=== PATIENT | male | born 1980 | race Caucasian/White ===

== ENCOUNTER 2025-05-03 22:16 | Emergency (ER) | payer MEDICAID, SELFPAY ==
--- NOTE | 2025-05-03 23:24 | PC.NURSE ---
CALLED FOR PT FROM LOBBY/OUTSIDE, NO ANSWERX1@ [phone]
--- NOTE | 2025-05-03 23:48 | PC.NURSE ---
CALLED FOR PT FROM LOBBY/OUTSIDE, NO ANSWERX2@[phone]
--- NOTE | 2025-05-03 23:53 | PD.EDADDENDU ---
Emergency Room Addendum Addendum Narrative: When I looked for the patient to start my evaluation, I was told the patient eloped. Cole Disla MD
== END 2025-05-04 00:39 | disposition left against medical advice (07) ==
PROVIDERS: Emergency Provider Emergency Medicine
DX: Z53.21 Procedure and treatment not carried out due to patient leaving prior to being seen by health care provider (principal)
CPT/HCPCS: 99283

== ENCOUNTER 2025-05-06 03:14 | Emergency (ER) | payer MEDICAID, SELFPAY ==
[2025-05-06 03:15] VITALS: BMI 37.5
[2025-05-06 03:25] VITALS: BP 161/101; PULSE 95; RESP 18; TEMP 36.8; O2SAT 96
--- NOTE | 2025-05-06 03:39 | XR_ITS ---
Examination: CT abdomen and pelvis without contrast. Coronal 3-D reconstructions. Sagittal 2-D reconstructions. Date and time of exam:May 06, 2025, 0400 hours INDICATIONS: Left upper abdominal pain and left flank pain beginning one week ago CTDI: vol (mGy): 11.4. DLP: (mGycm): 748. Technique: Axial images of the abdomen have been obtained, 3 mm slice thickness Intravenous contrast material has not been administered. Low dose protocols were performed. One or more of the following dose reduction techniques were used; automated exposure control, adjustment of the mA and/or KV according to patient size, use of iterative reconstruction technique. Findings: No focal liver or splenic lesions Contracted gallbladder No pancreatic or adrenal mass Aorta normal size 19 mm cystic lesion upper pole left kidney No renal or ureteral calculi, no hydronephrosis 20 mm fat-containing umbilical hernia Normal appendix No bowel obstruction or diverticulitis Normal seminal vesicles No prostatomegaly Urinary bladder intact IMPRESSION: Recommend renal sonography to further assess 19 mm cystic lesion upper pole left kidney Normal appendix No bowel obstruction diverticulitis or free air
[2025-05-06] MEDS: ONDANSETRON ODT 4 MG TABRAP PO (03:52)
[2025-05-06] MEDS: FAMOTIDINE 20 MG TABLET 40 MG PO (03:52)
[2025-05-06] MEDS: MG HYD/AL HYD/SIME (Maalox Reg) SUSP 30 ML UDC PO (04:13)
[2025-05-06 05:00] LABS: Basophils # (Auto) 0.1 Thou/mm3 (0.0-0.2); Basophils % (Auto) 1 % (0-2.5); Eosinophils # (Auto) 0.2 Thou/mm3 (0.0-0.5); Eosinophils % (Auto) 2 % (0-10); Hematocrit 44.2 % (41.0-53.0); Hemoglobin 15.5 g/dL (13.5-16.0); Immature Granulocytes Auto 0.02 Thou/mm3 (0.00-0.00); Lymphocytes # (Auto) 2.8 Thou/mm3 (1.0-4.8); Lymphocytes % (Auto) 27 % (10-50); Mean Corpuscular HGB Conc 35.1 g/dl (31.0-37.0); Mean Corpuscular Hemoglobin 30.1 pg (25.0-35.0); Mean Corpuscular Volume 86 fL (80-100); Monocytes # (Auto) 1.0 Thou/mm3 (0.0-0.8); Monocytes % (Auto) 9 % (0-12); Neutrophils # (Auto) 6.5 Thou/mm3 (1.8-7.7); Neutrophils % (Auto) 62 % (37-80); Nucleated Red Blood Cell # 0.00 Thou/mm3 (0.00-0.00); Nucleated Red Blood Cell % 0 /100 WBC (0); Platelet Count 283 Thou/mm3 (140-440); RDW Standard Deviation 40.5 fL (35.1-43.9); Red Blood Count 5.15 Miln/mm3 (4.50-5.90); White Blood Count 10.5 Thou/mm3 (3.8-10.6)
--- NOTE | 2025-05-06 05:11 | PRELIM_ITS ---
CT scan of the abdomen and pelvis without intravenous contrast (axial sections with sagittal and coronal reformats) May 06, 2025 0400 hours Clinical History: LUQ/Flank pain. Comparison: No prior study is available for comparison. Findings: The lung bases are clear. The liver, gallbladder, pancreas, spleen and adrenals are unremarkable on this noncontrast study. Cystic lesion of the left kidney measures 1.9 cm. No hydronephrosis. No evidence of kidney or ureteral stones. No evidence of bowel obstruction. The appendix is within normal limits. There is no mesenteric or retroperitoneal adenopathy. The urinary bladder is unremarkable. There is no free fluid or free air. Degenerative changes of the imaged portions of the spine. Chronic multilevel disc disease. No acute fractures. Vascular calcifications. Mildly prominent descending and sigmoid colon. Impression: Left renal cystic lesion, consider further evaluation for characterization. No kidney or ureteral stones. Possible mild colitis of the descending and sigmoid colon. Report Electronically Signed By: Manuel Capone 05/06/2025 5:11:23 AM [EST]
[2025-05-06 05:15] LABS: Alanine Aminotransferase 32 U/L (10-49); Albumin, Serum 4.5 gm/dL (3.5-5.0); Albumin/Globulin Ratio 1.7 (1.2-2.2); Alcohol, Blood Medical < 3.0 mg/dL (0-10.0); Alkaline Phosphatase 104 U/L (46-116); Anion Gap 4 (7-16); Aspartate Amino Transferase 28 U/L (0-34); BUN/Creatinine Ratio 10 Ratio (12-20); Bilirubin,Total 0.5 mg/dL (0.3-1.2); Blood Urea Nitrogen 16 mg/dL (9-23); Calcium 9.5 mg/dL (8.3-10.6); Calcium (Corrected) 9.5 mg/dL (8.5-10.1); Carbon Dioxide 29.7 mMol/L (20.0-31.0); Chloride 107 mMol/L (98-107); Creatinine (Component) 1.6 mg/dL (0.6-1.3); Estimated Creatinine Clearance 84.8 mL/min (>60); Globulin 2.7 gm/dL (2.3-3.5); Glucose 101 mg/dL (74-106); Lipase 39 U/L (12-53); Osmolality,Calculated 282 (275-295); Potassium 4.4 mMol/L (3.4-5.1); Sodium 141 mMol/L (136-145); Total Protein 7.2 gm/dL (5.7-8.2); eGFR 55 See Note
--- NOTE | 2025-05-06 05:54 | PD.EDRME ---
Rapid Medical Screening Exam E Arrival date/time: 05/06/25 03:14 44M with no significant PMH presents to ED with 1.5 weeks of LUQ/flank pain and N/V, possibly bloody. Patient smokes marijuana but denies alcohol abuse. Chief Complaint: Abdominal Pain Time Seen by Provider: 05/06/25 03:37 Vital signs: Vital Signs Temperature 98.2 F 05/06/25 03:25 Pulse Rate 95 05/06/25 03:25 Respiratory Rate 18 05/06/25 03:25 Blood Pressure 161/101 H 05/06/25 03:25 Pulse Oximetry (%) 96 05/06/25 03:25 Oxygen Delivery Method Room Air 05/06/25 03:25
[2025-05-06 06:03] LABS: Collection Type, Urine Clean Catch
[2025-05-06 06:37] LABS: Amphetamine/Methamp Scrn,U Positive (Negative); Barbiturate Screen,Urine Negative (Negative); Benzodiazepines Screen,Urine Negative (Negative); Benzoylecgonine Screen, Ur Negative (Negative); Fentanyl Screen,Urine Negative (Negative); Opiate Screen,Urine Negative (Negative); THC Screen,Urine Positive (Negative)
[2025-05-06 06:39] LABS: Bacteria,Urine Rare; Bilirubin,Urine Negative (Negative); Blood,Urine Negative (Negative); Clarity,Urine Clear (Clear/Hazy); Color,Urine Yellow (Lt Yel-Yel); Culture Indicated,Urine Not Indicated; Glucose, Urine Negative (Negative); Ketones,Urine Negative (Negative); Leukocyte Esterase,Urine Negative (Negative); Nitrite,Urine Negative (Negative); PH,Urine 6.0 (5.0-7.0); Protein,Urine Trace (Neg - Trace); RBC,Urine 1 /hpf (0-3); Specific Gravity,Urine 1.036 (1.001-1.035); Squamous Epithelial Cell,Urine < 1 /hpf (0-5); Urobilinogen,Urine 2.0 mg/dL (0.0-1.0); WBC,Urine 4 /hpf (0-5)
[2025-05-06 06:40] LABS: Sperm,Urine Present
== END 2025-05-06 06:08 | disposition left against medical advice (07) ==
LOC: SERX 04:00
PROVIDERS: Physician Assistant; Emergency Provider Emergency Medicine; PCP Family Medicine
DX: R10.9 Unspecified abdominal pain (principal); Z53.29 Procedure and treatment not carried out because of patient's decision for other reasons
CPT/HCPCS: 36415; 74176; 80053; 80307; 80320; 81001; 83690; 85025; 99283; Q0162; A9270; G0480

== ENCOUNTER 2025-05-06 06:14 | Emergency (ER) | payer MEDICAID, SELFPAY ==
[2025-05-06 06:15] VITALS: BP 132/81; PULSE 87; RESP 18; TEMP 36.7; O2SAT 98; BMI 37.5
--- NOTE | 2025-05-06 06:54 | EDNOTE_ITS ---
ED Abdominal Pain RME/HPI General Chief Complaint: Abdominal Pain Stated complaint: L FLANK PAIN Time seen by provider: 05/06/25 06:21 Arrival date/time: 05/06/25 06:14 44-year-old male with no known medical history presents to the emergency room with a chief complaint of left-sided flank pain, left-sided groin pain, and episodes of constipation and diarrhea x 2 weeks. Source: patient Mode of arrival: ambulatory Limitations: no limitations Related Data Home Medications ?Medication ?Instructions ?Recorded ?Confirmed aspirin 81 mg tablet 81 mg PO QDAY 01/28/2101/28 Allergies Allergy/AdvReac Type Severity Reaction Status Date / Time No Known Allergies Allergy Verified 05/06/25 06:17 Review of Systems Review of Systems Systems Reviewed: All systems reviewed, normal except as documented Constitutional Constitutional: Reports system reviewed and no additional complaints, except as documented, Denies fatigue, Denies fever(s), Denies headache(s) and Denies weakness Eyes Eyes: Reports system reviewed and no additional complaints, except as documented, Denies blurry vision and Denies change in vision ENT Ears, Nose, Mouth, and Throat: Reports system reviewed and no additional complaints, except as documented, Denies otalgia, Denies headache(s), Denies nasal congestion, Denies throat swelling and Denies vertigo Cardiovascular Cardiovascular: Reports system reviewed and no additional complaints, except as documented, Denies chest pain, Denies dyspnea and Denies dyspnea on exertion Respiratory Respiratory: Reports system reviewed and no additional complaints, except as documented, Denies chest congestion, Denies cough, Denies dyspnea, Denies dyspnea on exertion and Denies wheezing Gastrointestinal Gastrointestinal: Reports system reviewed and no additional complaints, except as documented, Reports abdominal pain, Reports cramping, Reports nausea and Denies vomiting Genitourinary Genitourinary: Reports system reviewed and no additional complaints, except as documented, Denies dysuria and Denies hematuria Musculoskeletal Musculoskeletal: Reports system reviewed and no additional complaints, except as documented and Denies back pain Integumentary/Breasts Skin/Breast: Reports system reviewed and no additional complaints, except as documented and Denies wounds Neurologic Neurologic: Reports system reviewed and no additional complaints, except as documented, Denies confusion, Denies headache(s), Denies lack of coordination, Denies vertigo and Denies weakness Psychiatric Psychiatric: Reports system reviewed and no additional complaints, except as documented, Denies anxiety, Denies confusion, Denies depression, Denies paranoia, Denies suicidal ideation and Denies tactile hallucinations Endocrine Endocrine: Reports system reviewed and no additional complaints, except as documented and Denies fatigue Hematologic/Lymphatic Hematologic/Lymphatic: Reports system reviewed and no additional complaints, except as documented and Denies lymphadenopathy Allergic/Immunologic Allergic/Immunologic: Reports system reviewed and no additional complaints, except as documented, Denies throat swelling, Denies urticaria and Denies wheezing ED Exam General Limitations: Present no limitations General appearance: Present alert and in no apparent distress Head Head exam: Present atraumatic Eye Eye exam: Present normal appearance, PERRL and EOMI ENT ENT exam: Present normal exam, normal oropharynx and mucous membranes moist Neck Neck exam: Present normal inspection, full ROM and trachea midline Chest Chest inspection: Present normal inspection and symmetric chest wall rise Respiratory Respiratory exam: Present normal lung sounds bilaterally Cardiovascular Cardiovascular exam: Present regular rate, normal rhythm and normal heart sounds Abdominal Exam Abdominal exam: Present soft and normal bowel sounds Extremities Exam Extremities exam: Present normal inspection and full ROM Back Exam Back exam: Present normal inspection, full ROM, tenderness and CVA tenderness (L) Neurological Exam Neurological exam: Present alert, oriented X3 and CN II-XII intact Psychiatric Psychiatric exam: Present normal affect and normal mood Skin Skin exam: Present warm, dry, intact and normal color Course Quality Measures none Vital Signs Vital signs: Vital Signs Temperature 98.0 F 05/06/25 06:15 Pulse Rate 87 05/06/25 06:15 Respiratory Rate 18 05/06/25 06:15 Blood Pressure 132/81 H 05/06/25 06:15 Pulse Oximetry (%) 98 05/06/25 06:15 Oxygen Delivery Method Room Air 05/06/25 06:15 Abdominal Pain MDM MDM Narrative MDM Narrative:: 44-year-old male with no known medical history presents to the emergency room with a chief complaint of left-sided flank pain, left-sided groin pain, and episodes of constipation and diarrhea x 2 weeks. Patient is hemodynamically stable and in no apparent distress Physical examination shows left-sided CVA tenderness with palpation, left-sided groin pain with palpation. Patient has active bowel sounds to all 4 quadrants. Patient states he has episodes of constipation and diarrhea multiple times throughout the week. CT of the abdomen and pelvis was negative for any acute findings. The patient was educated that there was a left renal cystic lesion and that further management and ultrasound will be needed by his primary care provider. The patient was also educated that there is some mild colitis in the descending and sigmoid colon that can be the cause of his symptoms. The patient was educated to follow-up with primary care provider as a referral to a mushroom spawn maker will be needed for a colonoscopy. Patient was discharged and educated to follow-up with primary care provider in the next 24 to 48 hours and return to the emergency room for any evidence of worsening signs or symptoms Patient data External records reviewed:: [facility] previous records Clinical information provided by:: patient Social determinants that could affect healthcare access:: none Patient has the following chronic illnesses:: No chronic illness How is presenting disease/condition affected by chronic disease/condition?: no chronic disease Evaluation data The following diagnostics were reviewed and interpreted by me:: lab results and radiology exam(s) Lab and/or radiology exams considered but not ordered:: Labs and radiology exams considered in order Interpretation Summary: CT abdomen and pelvis-Findings: The lung bases are clear. The liver, gallbladder, pancreas, spleen and adrenals are unremarkable on this noncontrast study. Cystic lesion of the left kidney measures 1.9 cm. No hydronephrosis. No evidence of kidney or ureteral stones. No evidence of bowel obstruction. The appendix is within normal limits. There is no mesenteric or retroperitoneal adenopathy. The urinary bladder is unremarkable. There is no free fluid or free air. Degenerative changes of the imaged portions of the spine. Chronic multilevel disc disease. No acute fractures. Vascular calcifications. Mildly prominent descending and sigmoid colon. Impression: Left renal cystic lesion, consider further evaluation for characterization. No kidney or ureteral stones. Possible mild colitis of the descending and sigmoid colon. Medications / Prescriptions Medications or Prescriptions considered but not ordered:: No medication given Medication administrations:: No medication given Consultations Consultation(s) initiated? (list below): No Diagnosis Differential diagnosis abdominal pain: abdominal pain, acute appendicitis, constipation, diverticulitis, gastroenteritis and other (Colitis) Most likely diagnosis given after review of the tests above:: Colitis Admission Indicated Admission indicated?: not indicated Admission Request Was there a request for admission?: No Disposition Plan Disposition Plan: Discharge Discharge Attestation Discharge Attestation: The patient and all family members were given an opportunity to ask questions and understood the discharge instructions. Discharge instructions specifically effects, indications for sooner follow up or return to the emergency department, and the expected course of current diagnosis. Patient condition: Stable Discharge Plan Plan Patient Disposition: HOME (Self Care) Discharge Disposition comment: Stable Prescriptions/Referrals Prescriptions/Med Rec: No Action aspirin 81 mg Tablet 81 mg PO QDAY Referrals: Bassam Lombardi MD [Primary Care Provider] - In 1 week Problem List Clinical Impression: Colitis Patient/Caregiver Discharge Instructions Education Materials: How the Colon Works, Understanding Colitis, ED G astroenteritis, Noninfectious Additional Instructions: Please follow-up with your primary care provider in the next [address] of your abdomen and pelvis was negative for any acute findings Please follow-up with your primary care provider in regards to your cystic lesion in your kidney. Liver signs and symptoms continue referral to a mushroom spawn maker will be needed for further management For any evidence of worsening signs or symptoms return to emergency room immediately Print Language: Andorran Stand Alone Forms: [employer] Award Info., Work/School Release, Patient Portal Info Letter CHIQUITA/GABY Supervising Physician CHIQUITA/GABY Supervising Physician: Dr. Casarez
== END 2025-05-06 07:06 | disposition home or self-care (01) ==
PROVIDERS: Emergency Provider Family Medicine; PCP Family Medicine
DX: K52.9 Noninfective gastroenteritis and colitis, unspecified (principal)
CPT/HCPCS: 99283

== ENCOUNTER 2025-06-09 16:29 | Emergency (ER) | payer MEDICAID, SELFPAY ==
[2025-06-09 16:30] VITALS: BMI 30.2
[2025-06-09 16:57] VITALS: BP 143/87; PULSE 107; RESP 20; TEMP 37.1; O2SAT 96
--- NOTE | 2025-06-09 16:57 | XR_ITS ---
Examination: CT abdomen and pelvis without contrast. Coronal 3-D reconstructions. Sagittal 2-D reconstructions. Date and time of exam:June 09, 2025, 1947 hours, comparison May 06, 2025. INDICATIONS: Generalized abdominal pain and bloody stools today CTDI: vol (mGy): 10.3 DLP: (mGycm): 667 Technique: Axial images of the abdomen have been obtained, 3 mm slice thickness Intravenous contrast material has not been administered. Low dose protocols were performed. One or more of the following dose reduction techniques were used; automated exposure control, adjustment of the mA and/or KV according to patient size, use of iterative reconstruction technique. Findings: No focal liver or splenic lesions No gallstones. No pancreatic or adrenal mass. No renal or ureteral calculi, mild bilateral renal scarring. Aorta normal size. Normal appendix. No bowel obstruction No diverticulitis Contracted urinary bladder No prostatomegaly The rectal wall is not thickened IMPRESSION: No renal or ureteral calculi, no hydronephrosis Mild bilateral renal parenchymal scar formation. Normal appendix. No bowel obstruction or diverticulitis. Rectal wall is not thickened. If the patient has gastrointestinal bleeding, consider follow-up CTA abdomen and pelvis post intravenous contrast/nuclear medicine gastrointestinal bleeding study, as the current study is noncontrast
--- NOTE | 2025-06-09 16:58 | PD.EDRME ---
Rapid Medical Screening Exam RME Arrival date/time: 06/09/25 16:29 44-year-old male presents to the Emergency Department of complaint of abdominal pain Chief Complaint: Abdominal Pain Time Seen by Provider: 06/09/25 16:53 Vital signs: Vital Signs Temperature 98.7 F 06/09/25 16:57 Pulse Rate 107 H 06/09/25 16:57 Respiratory Rate 20 06/09/25 16:57 Blood Pressure 143/87 H 06/09/25 16:57 Pulse Oximetry (%) 96 06/09/25 16:57 Oxygen Delivery Method Room Air 06/09/25 16:57
[2025-06-09 18:12] LABS: Collection Type, Urine Clean Catch
[2025-06-09 18:38] LABS: Bacteria,Urine Rare; Bilirubin,Urine Negative (Negative); Blood,Urine Negative (Negative); Clarity,Urine Clear (Clear/Hazy); Color,Urine Yellow (Lt Yel-Yel); Culture Indicated,Urine Not Indicated; Glucose, Urine Negative (Negative); Ketones,Urine Negative (Negative); Leukocyte Esterase,Urine Negative (Negative); Nitrite,Urine Negative (Negative); PH,Urine 6.5 (5.0-7.0); Protein,Urine Trace (Neg - Trace); RBC,Urine 5 /hpf (0-3); Specific Gravity,Urine 1.028 (1.001-1.035); Squamous Epithelial Cell,Urine 1 /hpf (0-5); Urobilinogen,Urine Negative mg/dL (0.0-1.0); WBC,Urine 2 /hpf (0-5)
[2025-06-09 20:00] LABS: Basophils # (Auto) 0.1 Thou/mm3 (0.0-0.2); Basophils % (Auto) 1 % (0-2.5); Eosinophils # (Auto) 0.2 Thou/mm3 (0.0-0.5); Eosinophils % (Auto) 2 % (0-10); Hematocrit 47.5 % (41.0-53.0); Hemoglobin 16.2 g/dL (13.5-16.0); Immature Granulocytes Auto 0.02 Thou/mm3 (0.00-0.00); Lymphocytes # (Auto) 2.7 Thou/mm3 (1.0-4.8); Lymphocytes % (Auto) 29 % (10-50); Mean Corpuscular HGB Conc 34.1 g/dl (31.0-37.0); Mean Corpuscular Hemoglobin 30.5 pg (25.0-35.0); Mean Corpuscular Volume 90 fL (80-100); Monocytes # (Auto) 0.7 Thou/mm3 (0.0-0.8); Monocytes % (Auto) 8 % (0-12); Neutrophils # (Auto) 5.5 Thou/mm3 (1.8-7.7); Neutrophils % (Auto) 60 % (37-80); Nucleated Red Blood Cell # 0.00 Thou/mm3 (0.00-0.00); Nucleated Red Blood Cell % 0 /100 WBC (0); Platelet Count 281 Thou/mm3 (140-440); RDW Standard Deviation 41.2 fL (35.1-43.9); Red Blood Count 5.31 Miln/mm3 (4.50-5.90); White Blood Count 9.1 Thou/mm3 (3.8-10.6)
[2025-06-09 20:17] LABS: Alanine Aminotransferase 22 U/L (10-49); Albumin, Serum 4.4 gm/dL (3.5-5.0); Albumin/Globulin Ratio 1.9 (1.2-2.2); Alkaline Phosphatase 132 U/L (46-116); Anion Gap 8 (7-16); Aspartate Amino Transferase 19 U/L (0-34); BUN/Creatinine Ratio 8 Ratio (12-20); Bilirubin,Total 0.4 mg/dL (0.3-1.2); Blood Urea Nitrogen 10 mg/dL (9-23); Calcium 9.5 mg/dL (8.3-10.6); Calcium (Corrected) 9.5 mg/dL (8.5-10.1); Carbon Dioxide 28.7 mMol/L (20.0-31.0); Chloride 106 mMol/L (98-107); Creatinine (Component) 1.2 mg/dL (0.6-1.3); Estimated Creatinine Clearance 101.5 mL/min (>60); Globulin 2.3 gm/dL (2.3-3.5); Glucose 121 mg/dL (74-106); Lipase 48 U/L (12-53); Osmolality,Calculated 284 (275-295); Potassium 3.6 mMol/L (3.4-5.1); Sodium 143 mMol/L (136-145); Total Protein 6.7 gm/dL (5.7-8.2); eGFR > 60 See Note
--- NOTE | 2025-06-09 20:29 | PD.EDGIBLD ---
ED GI Bleed RME/HPI General Chief complaint: Abdominal Pain Stated complaint: BILE LEAKAGE INTO INTESTINE SENT BY PRIMARY Time Seen by Provider: 06/09/25 16:53 Arrival date/time: 06/09/25 16:29 RME / HPI RME / HPI Narrative: 06/09/25 16:29 44-year-old male presents to the Emergency Department of complaint of abdominal pain See [facility] for Dr. Disla's HPI Documentation. Related Data Home Medications ?Medication ?Instructions ?Recorded ?Confirmed aspirin 81 mg tablet 81 mg PO QDAY 01/28/21 01/28/21 Allergies Allergy/AdvReac Type Severity Reaction Status Date / Time No Known Allergies Allergy Verified 06/09/25 16:33 Review of Systems Review of Systems Systems Reviewed: All systems reviewed, normal except as documented Past Medical History Past Medical History CARDIAC: Positive Cardiac Disorders (HTN) and Hypertension Social History SMOKING STATUS: Current every day smoker ED Exam Narrative Physical exam: See [facility] for Dr. Disla's Physical Exam Documentation. Course Quality Measures none Orders Category Date Time Status CT abdomen pelvis wo con Stat Exams 06/09/25 16:57 Completed CBC Stat Lab 06/09/25 19:36 Completed Comprehensive Metabolic Panel Stat Lab 06/09/25 19:36 Completed Lipase Stat Lab 06/09/25 19:36 Completed UA, C/S IF [Urinalysis, C/S if Indicated] Stat Lab 06/09/25 18:00 Completed Vital Signs Vital signs: Vital Signs Temperature 98.7 F 06/09/25 16:57 Pulse Rate 107 H 06/09/25 16:57 Respiratory Rate 20 06/09/25 16:57 Blood Pressure 143/87 H 06/09/25 16:57 Pulse Oximetry (%) 96 06/09/25 16:57 Oxygen Delivery Method Room Air 06/09/25 16:[address] [facility] Narrative [facility] Narrative:: Scribe Attestation: ILiliane, am scribing for and in the presence of Dr. Disla. This section includes all my notes and documentations, including HPI, PE, and ED course. Cole Disla MD HPI: 44 y/o male with Hx of HTN presents with streaks of blood in his stool x 2 weeks on and off. No vomiting. No abdominal pain. No tarry stools. No other complaints. ROS: All negative except as documented in HPI. Physical Exam: General: Alert and oriented. No acute distress when remaining still. Eyes: Conjunctivae and lids clear. ENT: No nasal congestion. Neck: Supple. Heart: RRR. Lungs: No respiratory distress. Good air movement. No rhonchi, wheezing, rales. Abdomen: Soft and nontender. Normal bowel sounds. No distension. No rebound or guarding. Back: No CVA tenderness. Skin: Warm and dry. Neuro: Alert and oriented X 3. I reviewed all diagnostic test results: My review of the Abdomen/Pelvis CT report is: NAD. Blood tests and urine tests unremarkable, including Hgb 16.2. At this point, diagnoses include: Blood in Stool with unclear etiology. Recommended more outpatient workup. Based on my best medical judgment, made decision no further evaluation or treatment indicated at this time. Patient understands and agrees to the discharge instructions customized and printed, see below. Discharge Instructions from Dr. Disla printed for you: 1. After evaluation, exact cause of blood in your stools was not determined. 2. But there is no emergency, such as low blood count needing transfusion and other intervention. 3. To find the cause and treatment of blood in your stools, you need to see a proper doctor outside the ER on 06/10/2025. Ask to review all test results and official radiology reports, to make sure you receive all necessary follow-ups and monitoring. To make sure there is no serious intra-abdominal condition, ask for help with more investigation not available here in the ER. Such as EGD or scoping the stomach, colonoscopy or scoping the colon, and referral to see insurance defense attorney. This is extremely important to make sure there is no cancer. 4. Seek immediate medical care with worsening or with any concerns. Cole Disla MD Patient data External records reviewed:: [facility] previous records (Reviewed prior ED records from 05/06/25. Patient was seen for Colitis.) Clinical information provided by:: patient Social determinants that could affect healthcare access:: none Patient has the following chronic illnesses:: HTN How is presenting disease/condition affected by chronic disease/condition?: uneffected by Evaluation data The following diagnostics were reviewed and interpreted by me:: lab results and radiology exam(s) Lab and/or radiology exams considered but not ordered:: None Interpretation Summary: I reviewed all diagnostic test results: My review of the Abdomen/Pelvis CT report is: NAD. Blood tests and urine tests unremarkable, including Hgb 16.2. Medications / Prescriptions Medications or Prescriptions considered but not ordered:: None Medication administrations:: None Consultations Consultation(s) initiated? (list below): No Diagnosis GI bleed differential diagnosis: hemorrhoids, infectious diarrhea, Lower gastrointestinal hemorrhage, hematochezia, melena and anal fissure Most likely diagnosis given after review of the tests above:: Blood in Stool with unclear etiology Admission Indicated Admission indicated?: not indicated Explain why admission is indicated or not indicated:: With no condition needing emergent intervention, there was no indication for admission. Admission Request Was there a request for admission?: No Disposition Plan Disposition Plan: Discharge Discharge Attestation Discharge Attestation: The patient and all family members were given an opportunity to ask questions and understood the discharge instructions. Discharge instructions specifically effects, indications for sooner follow up or return to the emergency department, and the expected course of current diagnosis. Patient condition: Stable Discharge Plan Plan Patient Disposition: HOME (Self Care) Prescriptions/Referrals Prescriptions/Med Rec: No Action aspirin 81 mg Tablet 81 mg PO QDAY Referrals: No Primary/Family,Physician [Primary Care Provider] - In 1 week Problem List Clinical Impression: Blood in stool Patient/Caregiver Discharge Instructions Education Materials: ED Lower GI Bleeding (Stable) Additional Instructions: Discharge Instructions from Dr. Disla printed for you: 1. After evaluation, exact cause of blood in your stools was not determined. 2. But there is no emergency, such as low blood count needing transfusion and other intervention. 3. To find the cause and treatment of blood in your stools, you need to see a proper doctor outside the ER on 06/10/2025. Ask to review all test results and official radiology reports, to make sure you receive all necessary follow-ups and monitoring. To make sure there is no serious intra-abdominal condition, ask for help with more investigation not available here in the ER. Such as EGD or scoping the stomach, colonoscopy or scoping the colon, and referral to see insurance defense attorney. This is extremely important to make sure there is no cancer. 4. Seek immediate medical care with worsening or with any concerns. Print Language: Danish Stand Alone Forms: [employer] Award Info., Patient Portal Info Letter
== END 2025-06-09 20:32 | disposition home or self-care (01) ==
PROVIDERS: Nurse Practitioner Primary Care; Emergency Provider Emergency Medicine
DX: K92.1 Melena (principal); R10.9 Unspecified abdominal pain; I10 Essential (primary) hypertension; F17.210 Nicotine dependence, cigarettes, uncomplicated; Z79.82 Long term (current) use of aspirin
CPT/HCPCS: 36415; 74176; 80053; 81001; 83690; 85025; 99283

== ENCOUNTER 2025-06-13 02:52 | Emergency (ER) | payer MEDICAID, SELFPAY ==
[2025-06-13 02:53] VITALS: BMI 30.9
[2025-06-13 03:00] VITALS: BP 162/96; BP 167/105; PULSE 86; RESP 18; TEMP 37; O2SAT 97
--- NOTE | 2025-06-13 03:09 | EKG_ITS ---
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
--- NOTE | 2025-06-13 03:09 | XR_ITS ---
Examination: CT brain head without contrast. 2-D sagittal coronal reconstructions Date and time of exam:June 13, 2025 at 0345 hours INDICATIONS: High blood pressure with headaches beginning one month ago CTDI: vol (mGy):21.1 DLP: (mGycm):1056 Technique: Multiple CT axial sections of the brain have been obtained, 5 mm slice thickness. Contrast has not been administered. 2-D sagittal, coronal reconstructions have been obtained Low dose protocols were performed. One or more of the following dose reduction techniques were used; automated exposure control, adjustment of the mA and/or KV according to patient size, use of iterative reconstruction technique. Findings: No significant ventricular enlargement. Intra-axial or extra-axial hemorrhage density is not seen. No mass effect or midline shift Basal cisterns are not remarkable. Fourth ventricle is midline. Cranial vault intact. Impression: Negative for acute hemorrhage, mass effect or midline shift
--- NOTE | 2025-06-13 03:10 | PD.EDRME ---
Rapid Medical Screening Exam RME Arrival date/time: 06/13/25 02:52 This is a case of a 44-year-old male who came in the emergency room due to elevated blood pressure at home patient states that his blood pressure at home was 210/93 currently complaining of headache for 1 week with chest pain and shortness of breath persistence of the symptoms this patient decided to start consult here in the emergency room Chief Complaint: General Adult/Misc Complain Time Seen by Provider: 06/13/25 02:55 Vital signs: Vital Signs Temperature 98.6 F 06/13/25 03:00 Pulse Rate 86 06/13/25 03:00 Respiratory Rate 18 06/13/25 03:00 Blood Pressure 167/105 H 06/13/25 03:00 Pulse Oximetry (%) 97 06/13/25 03:00 Oxygen Delivery Method Room Air 06/13/25 03:00
[2025-06-13 03:22] VITALS: BP 174/103; PULSE 73; RESP 19; O2SAT 95
--- NOTE | 2025-06-13 03:28 | PD.EDRECHK ---
ED Recheck Abnl Lab Rx-RME/HPI General Chief Complaint: General Adult/Misc Complain Stated Complaint: HIGH BP 210/193 Time Seen by Provider: 06/13/25 02:55 Arrival date/time: 06/13/25 02:52 RME / HPI RME / HPI narrative: 06/13/25 02:52 This is a case of a 44-year-old male who came in the emergency room due to elevated blood pressure at home patient states that his blood pressure at home was 210/93 currently complaining of headache for 1 week with chest pain and shortness of breath persistence of the symptoms this patient decided to start consult here in the emergency room Dr. [facility]con[facility] ED Evaluation: 44yo male with a history of CHF, HTN presents to the ED for a chief complaint of elevated blood pressure. Patient states his blood pressure has been out of control for the last 1 week. Patient did run out of his antihypertensives. He endorses having a headache. Deneis any other associated symptoms. Patient does smoke marijuana and is a former methamphetamine user. NKA. Related Data Home Medications ?Medication ?Instructions ?Recorded ?Confirmed aspirin 81 mg tablet 81 mg PO QDAY 01/28/21 01/28/21 Previous Rx's ?Medication ?Instructions ?Recorded amlodipine 10 mg tablet 10 mg PO QDAY #30 tabs 06/13/25 Allergies Allergy/AdvReac Type Severity Reaction Status Date / Time No Known Allergies Allergy Verified 06/09/25 16:33 Review of Systems Review of Systems Systems Reviewed: All systems reviewed, normal except as documented Past Medical History Past Medical History CARDIAC: Positive Cardiac Disorders and Hypertension; Negative Congestive Heart Failure RESPIRATORY: Negative Chronic Obstructive Pulmonary Disease (COPD) or Asthma GENITOURINARY: Negative Renal Disease ENDOCRINE: Negative Diabetes Mellitus Type 1 or Diabetes Mellitus Type 2 HEMATOLOGIC: Negative Sickle Cell Disease Social History SMOKING STATUS: Current some day smoker ED Exam Narrative Physical exam: Generally patient is alert in no obvious distress, neurologic exam no focal motor or sensory deficits and no ataxia, heart is regular rate and rhythm, lungs clear to auscultation equal bilaterally, abdomen soft bowel sounds present nondistended nontender, skin is cool pale and dry. Course Quality Measures none Orders Category Date Time Status EKG (ED ONLY) *Do not use* NOW Care 06/13/25 03:[address] head/brain wo con Stat Exams 06/13/25 03:09 Taken EKG (ED Only) Stat Exams 06/13/25 03:09 Draft BNP [B-Type Natriuretic Peptide] Stat Lab 06/13/25 03:31 Completed CBC Stat Lab 06/13/25 03:31 Completed CMP [Comprehensive Metabolic Panel] Stat Lab 06/13/25 03:31 Completed Troponin I Stat Lab 06/13/25 03:31 Completed Urinalysis Stat Lab 06/13/25 04:01 Completed Labetalol IV [Trandate IV] Med 06/13/25 03:33 Discontinued 20 mg IVP X1 ONE Vital Signs Vital signs: Vital Signs Temperature 98.6 F 06/13/25 03:00 Pulse Rate 86 06/13/25 03:00 Respiratory Rate 18 06/13/25 03:00 Blood Pressure 167/105 H 06/13/25 03:00 Pulse Oximetry (%) 97 06/13/25 03:00 Oxygen Delivery Method Room Air 06/13/25 03:00 Recheck / Abnormal Lab / Rx MDM Narrative MDM Narrative:: Scribe Attestation: 06/13/25 - Seble Bergman am scribing for and in the presence of Dr. Rincon. Workup was protocoled prior to me seeing the patient. Cardiac workup was unremarkable. Kidney function is normal. Head CT is negative. Patient received labetalol 20 mg IV which helped decrease his blood pressure 148/89. BNP is not elevated. Patient will be started on Norvasc 10 mg once a day to be taken as prescribed. Follow-up with his doctor. Return to ER as needed or if condition worsens. EKG done at 3:13 AM shows normal sinus rhythm at rate of 77 without ischemic change or ectopy. Patient data External records reviewed:: [facility] previous records (Per chart review, patient was seen here on 06/09/25 for blood in stool.) Clinical information provided by:: patient Social determinants that could affect healthcare access:: substance use (smokes marijuana, former methamphetamine use) Patient has the following chronic illnesses:: CHF, HTN How is presenting disease/condition affected by chronic disease/condition?: caused by Evaluation data The following diagnostics were reviewed and interpreted by me:: lab results, radiology exam(s) and EKG tracing(s) Lab and/or radiology exams considered but not ordered:: none Interpretation Summary: See MDM. Medications / Prescriptions Medications or Prescriptions considered but not ordered:: none Medication administrations:: Medication Administration History Discontinued Medications Labetalol HCl (Labetalol Inj 5 Mg/Ml Vial 20 Ml) 20 mg IVP X1 ONE Stop: 06/13/25 03:34 Last Admin: 06/13/25 03:38 Dose: 20 mg Documented By: MERVIN see above Consultations Consultation(s) initiated? (list below): No Diagnosis Recheck Differential Diagnosis: other (medication noncompliance, uncontrolled hypertension, hypertension urgency) Most likely diagnosis given after review of the tests above:: see clinical impression below Admission Indicated Admission indicated?: not indicated Admission Request Was there a request for admission?: No Disposition Plan Disposition Plan: Discharge Discharge Attestation Discharge Attestation: The patient and all family members were given an opportunity to ask questions and understood the discharge instructions. Discharge instructions specifically effects, indications for sooner follow up or return to the emergency department, and the expected course of current diagnosis. Patient condition: Stable Discharge Plan Plan Patient Disposition: HOME (Self Care) Prescriptions/Referrals Prescriptions/Med Rec: New amlodipine 10 mg tablet 10 mg PO QDAY Qty: 30 0RF No Action aspirin 81 mg Tablet 81 mg PO QDAY Referrals: Bassam Lombardi MD [Primary Care Provider] - In 1 week Problem List Clinical Impression: Poorly-controlled hypertension Patient/Caregiver Discharge Instructions Education Materials: ED Hypertension, Established Additional Instructions: Amlodipine as prescribed. Follow-up with your doctor. Return to ER as needed or if condition worsens. Print Language: Syriac Stand Alone Forms: [facility] Award Info., Patient Portal Info Letter
[2025-06-13 03:38] VITALS: BP 174/103; PULSE 73
[2025-06-13 03:38] LABS: Basophils # (Auto) 0.1 Thou/mm3 (0.0-0.2); Basophils % (Auto) 1 % (0-2.5); Eosinophils # (Auto) 0.1 Thou/mm3 (0.0-0.5); Eosinophils % (Auto) 2 % (0-10); Hematocrit 46.1 % (41.0-53.0); Hemoglobin 15.7 g/dL (13.5-16.0); Immature Granulocytes Auto 0.01 Thou/mm3 (0.00-0.00); Lymphocytes # (Auto) 3.0 Thou/mm3 (1.0-4.8); Lymphocytes % (Auto) 34 % (10-50); Mean Corpuscular HGB Conc 34.1 g/dl (31.0-37.0); Mean Corpuscular Hemoglobin 30.0 pg (25.0-35.0); Mean Corpuscular Volume 88 fL (80-100); Monocytes # (Auto) 0.8 Thou/mm3 (0.0-0.8); Monocytes % (Auto) 9 % (0-12); Neutrophils # (Auto) 4.9 Thou/mm3 (1.8-7.7); Neutrophils % (Auto) 55 % (37-80); Nucleated Red Blood Cell # 0.00 Thou/mm3 (0.00-0.00); Nucleated Red Blood Cell % 0 /100 WBC (0); Platelet Count 274 Thou/mm3 (140-440); RDW Standard Deviation 39.6 fL (35.1-43.9); Red Blood Count 5.24 Miln/mm3 (4.50-5.90); White Blood Count 8.9 Thou/mm3 (3.8-10.6)
[2025-06-13] MEDS: LABETALOL INJ 5 MG/ML VIAL 20 ML 20 MG IVP (03:38)
[2025-06-13 03:50] VITALS: BP 150/95; PULSE 65; RESP 19; O2SAT 95
--- NOTE | 2025-06-13 04:00 | PC.NURSE ---
PT ARRIVED TO ED FOR HIGH BP. PT STATES THAT HE TOOK HIS BP 3X AT HOME AND IT WAS AROUND 200 SYSTOLIC. PT ALSO REPORTS A HEADACHE AND STATES HES HAD A HEADACHE FOR YEARS. PT DENIES ANY PMH BESIDES HIGH BP AND TAKES LISINOPRIL. PT STATES THAT HE HAS NOT TAKEN BP MEDS FOR OVER 5 DAYS.
[2025-06-13 04:03] LABS: B-Type Natriuretic Peptide < 20 pg/mL (0-100)
[2025-06-13 04:04] LABS: Alanine Aminotransferase 23 U/L (10-49); Albumin, Serum 4.2 gm/dL (3.5-5.0); Albumin/Globulin Ratio 1.9 (1.2-2.2); Alkaline Phosphatase 123 U/L (46-116); Anion Gap 9 (7-16); Aspartate Amino Transferase 18 U/L (0-34); BUN/Creatinine Ratio 13 Ratio (12-20); Bilirubin,Total 0.2 mg/dL (0.3-1.2); Blood Urea Nitrogen 15 mg/dL (9-23); Calcium 9.6 mg/dL (8.3-10.6); Calcium (Corrected) 9.6 mg/dL (8.5-10.1); Carbon Dioxide 25.9 mMol/L (20.0-31.0); Chloride 107 mMol/L (98-107); Creatinine (Component) 1.2 mg/dL (0.6-1.3); Estimated Creatinine Clearance 102.7 mL/min (>60); Globulin 2.2 gm/dL (2.3-3.5); Glucose 101 mg/dL (74-106); Osmolality,Calculated 283 (275-295); Potassium 3.4 mMol/L (3.4-5.1); Sodium 142 mMol/L (136-145); Total Protein 6.4 gm/dL (5.7-8.2); Troponin I < 0.020 ng/mL (0.0-0.045); eGFR > 60 See Note
[2025-06-13 04:16] LABS: Collection Type, Urine Voided; Squamous Epithelial Cell,Urine 0 /hpf (0-5)
[2025-06-13 04:19] LABS: Bilirubin,Urine Negative (Negative); Blood,Urine Negative (Negative); Clarity,Urine Clear (Clear/Hazy); Color,Urine Lt-Yellow (Lt Yel-Yel); Glucose, Urine Negative (Negative); Ketones,Urine Negative (Negative); Leukocyte Esterase,Urine Negative (Negative); Nitrite,Urine Negative (Negative); PH,Urine 6.0 (5.0-7.0); Protein,Urine Negative (Neg - Trace); RBC,Urine 4 /hpf (0-3); Specific Gravity,Urine 1.028 (1.001-1.035); Urobilinogen,Urine 2.0 mg/dL (0.0-1.0); WBC,Urine 1 /hpf (0-5)
--- NOTE | 2025-06-13 04:30 | PRELIM_ITS ---
CT scan of the head without intravenous contrast (axial sections with sagittal and coronal reformats). June 13, 2025 0345 hours Clinical History: headache Comparison: No prior study is available for comparison. Findings: No evidence of intracranial hemorrhage, mass effect or midline shift. The ventricles and CSF spaces are unremarkable. A prominent cisterna magna is incidentally noted. The calvarium is unremarkable. The mastoid air cells and the visualized paranasal sinuses are clear. Impression: No evidence of intracranial hemorrhage, mass effect or midline shift. Report Electronically Signed By: Darrel Lockhart 06/13/2025 4:29:16 AM [EST]
[2025-06-13 04:33] VITALS: BP 148/93; PULSE 71; RESP 17; O2SAT 97
== END 2025-06-13 04:34 | disposition home or self-care (01) ==
PROVIDERS: Nurse Practitioner Family; Emergency Provider Emergency Medicine; PCP Family Medicine
DX: I11.0 Hypertensive heart disease with heart failure (principal); I50.9 Heart failure, unspecified
CPT/HCPCS: 36415; 70450; 80053; 81001; 83880; 84484; 85025; 93005; 96374; 99283; J3490; J1920

== ENCOUNTER 2025-06-17 22:20 | Emergency (ER) | payer MEDICAID, SELFPAY ==
[2025-06-17 22:21] VITALS: BMI 31.4
[2025-06-17 22:52] VITALS: BP 181/111; PULSE 94; RESP 18; TEMP 36.8; O2SAT 98
--- NOTE | 2025-06-17 23:12 | EDRME_ITS ---
Rapid Medical Screening Exam RME Arrival date/time: 06/17/25 22:20 44M with history of HTN and drug use presents to ED with elevated BP, DARBY, and CP. Patient was recently here for this, but states discharged BP meds haven't worked. Patient missed PCP appt today because he has no epic [facility] specialist. Similarly, patient states he can't be here for more than an hour. Chief Complaint: Headache Vital signs: Vital Signs Temperature 98.3 F 06/17/25 22:52 Pulse Rate 94 06/17/25 22:52 Respiratory Rate 18 06/17/25 22:52 Blood Pressure 181/111 H 06/17/25 22:52 Pulse Oximetry (%) 98 06/17/25 22:52 Oxygen Delivery Method Room Air 06/17/25 22:52
[2025-06-17 23:30] VITALS: BP 112/91; PULSE 90
== END 2025-06-17 23:46 | disposition left against medical advice (07) ==
LOC: SERX 23:18
PROVIDERS: Emergency Provider Emergency Medicine
DX: R51.9 Headache, unspecified (principal); I10 Essential (primary) hypertension; Z53.29 Procedure and treatment not carried out because of patient's decision for other reasons
CPT/HCPCS: 99283; A9270